=== PATIENT | male | born 1945 | race African-American/Black ===

== ENCOUNTER 2018-10-09 12:49 | Emergency (ER) | payer MEDICARE, OTHER ==
[~2018-10-09] VITALS: Ht 182.9 cm; Wt 106.4 kg
[~2018-10-09 12:49] MED LIST: ASPI-482 PO; CHOL2000 PO; OLME1TAB35 PO
--- NOTE | 2018-10-09 15:26 | PHYS DOC ---
Past Medical History Past Medical History: Cancer, Hypertension, Other Additional Past Medical Histor: prostate ca Past Surgical History: Other Additional Past Surgical Histo: prostate removed Alcohol Use: None Drug Use: None Adult General Chief Complaint Chief Complaint: OTHER COMPLAINTS HPI HPI Patient is a 73 year old [male] who presents with [transient right arm weakness. Patient reports he had been home 3 days ago, had a moment when he could not raise his right arm. States he was just very weak in that arm as well. Reports a short while afterwards the able to move his arm went away and he is able to move it as normal again. States he had contacted his primary care, had been seen there. Primary care recommend he have a CT scan. Patient reports the next day he had gone to [facility] had waited there in triage and had left after several hours without having any imaging performed. Reports he came here today to have his imaging and is reported by his doctor. Patient reports he feels just fine her now, denies any complaints at this time] Review of Systems Review of Systems Constitutional: Denies fever or chills [] Eyes: Denies change in visual acuity, redness, or eye pain [] HENT: Denies nasal congestion or sore throat [] Respiratory: Denies cough or shortness of breath [] Cardiovascular: No additional information not addressed in HPI [] GI: Denies abdominal pain, nausea, vomiting, bloody stools or diarrhea [] : Denies dysuria or hematuria [] Musculoskeletal: Denies back pain or joint pain, denies weakness [] Integument: Denies rash or skin lesions [] Neurologic: Denies headache, focal weakness or sensory changes [] Endocrine: Denies polyuria or polydipsia [] All other systems were reviewed and found to be within normal limits, except as documented in this note. Allergies Allergies Allergies Coded Allergies Type Severity Reaction Last Updated Verified iodine Allergy Intermediate Hives 10/09/18 Yes Physical Exam Physical Exam Constitutional: Well developed, well nourished, no acute distress, non-toxic appearance. [] HENT: Normocephalic, atraumatic, bilateral external ears normal, oropharynx moist, no oral exudates, nose normal. [] Eyes: PERRLA, EOMI, conjunctiva normal, no discharge. [] Neck: Normal range of motion, no tenderness, supple, no stridor. [] Cardiovascular:Heart rate regular rhythm, no murmur [] Lungs & Thorax: Bilateral breath sounds clear to auscultation [] Abdomen: Bowel sounds normal, soft, no tenderness, no masses, no pulsatile masses. [] Skin: Warm, dry, no erythema, no rash. [] Back: No tenderness, no CVA tenderness. [] Extremities: No tenderness, no cyanosis, no clubbing, ROM intact, no edema. [] Neurologic: Alert and oriented X 3, normal motor function, normal sensory function, no focal deficits noted. No ataxia. no weakness. sensation intact in all extremities. no facial droop. no slurred speech, no visual changes. [] Psychologic: Affect normal, judgement normal, mood normal. [] Current Patient Data Vital Signs Vital Signs Date Time Temp Pulse Resp B/P (MAP) Pulse Ox O2 Delivery O2 Flow Rate FiO2 10/09/18 15:29 80 144/88 (106) 93 Room Air 10/09/18 13:25 98.2 18 98.[address] changes. no STEMI. Singular PVC noted. [] Radiology/Procedures Radiology/Procedures Findings: Axial images of the head were obtained without contrast. Ventricles are normal size. Chronic ischemic changes white matter is notable. No intracranial hemorrhage, midline shift, or mass effect. Globes and optic nerves are unremarkable. Visualized paranasal sinuses are unremarkable. Impression: No acute process. PQRS Compliance Statement: One or more of the following individualized dose reduction techniques were utilized for this examination: 1. Automated exposure control 2. Adjustment of the mA and/or kV according to patient size 3. Use of iterative reconstruction technique Electronically signed by: Jens Cloud MD (10/09/2018 3:46 PM) [facility] [] Course & Med Decision Making Course & Med Decision Making Pertinent Labs and Imaging studies reviewed. (See chart for details) [Reviewed findings with patient, without acute changes noted on imaging. Discussed follow-up with primary care. Patient returned reports he will follow up with primary care provider no further questions] Dragon Disclaimer Dragon Disclaimer This electronic medical record was generated, in whole or in part, using a voice recognition dictation system. Departure Departure Impression: Primary Impression: Transient paralysis of a limb Disposition: 01 HOME, SELF-CARE Condition: GOOD Referrals: MELISSA SAXENA MD (PCP) Patient Instructions: Paresthesia, [id number]-[id number], Weakness, [id number] Additional Instructions: As we discussed, it is difficult to determine the cause of your inability to move the arm the other day. Today everything looks good. Your CT scan did not show any signs of anything acute. Please follow-up with your primary care prov ider in the next couple days to determine if they want to do any additional testing. If you have any further episodes where he lose the ability to move, please return to emergency room immediately EPI RAMIREZ APRN Oct 09, 2018 15:26
--- NOTE | 2018-10-09 15:49 | RAD ---
Examination: CT HEAD WO CONTRAST History: Transient weakness and paresthesias Comparison/Correlation: None Findings: Axial images of the head were obtained without contrast. Ventricles are normal size. Chronic ischemic changes white matter is notable. No intracranial hemorrhage, midline shift, or mass effect. Globes and optic nerves are unremarkable. Visualized paranasal sinuses are unremarkable. Impression: No acute process. PQRS Compliance Statement: One or more of the following individualized dose reduction techniques were utilized for this examination: 1. Automated exposure control 2. Adjustment of the mA and/or kV according to patient size 3. Use of iterative reconstruction technique Electronically signed by: Jens Cloud MD (10/09/2018 3:46 PM) [facility]
[2018-10-09 16:00] VITALS: BP 111/79
--- NOTE | 2018-10-11 04:39 | EKG ---
[facility] [address] [place] [address] Test Date: 2018-10-09 Test Time: 13:33:03 Pat Name: TEZ ANDINO Department: Room: Gender: M [employer] Manager: : 1945 Requested By: STAFF NON Order Number: [id number] Reading MD: Measurements Intervals [place] Rate: 86 P: 39 IN: 158 QRS: -8 QRSD: 84 T: 31 QT: 392 QTc: 472 Interpretive Statements SINUS RHYTHM VENTRICULAR PREMATURE COMPLEX(ES) LEFTWARD AXIS PROLONGED QT ABNORMAL ECG No previous ECG available for comparison
== END 2018-10-09 16:29 | disposition home or self-care (01) ==
LOC: ER 12:49
DX: G83.21 Monoplegia of upper limb affecting right dominant side (principal); I10 Essential (primary) hypertension; R51 Headache; Z88.8 Allergy status to other drugs, medicaments and biological substances
CPT/HCPCS: 70450; 93005; 99284-25

== ENCOUNTER → 2020-09-03 | Outpatient (CLI) | payer MEDICARE, OTHER ==
[~2020-09-03] MED LIST changes: +GADOTERATE 5 MMOL/10ML VIAL. ONE
[2020-09-03 08:58] LABS: CREATININE 1.3 mg/dL (0.7-1.3); GFR 65.5
--- NOTE | 2020-09-03 13:34 | RAD ---
EXAM: Left lower extremity arterial Doppler. HISTORY: Nonhealing ulcer left heel. COMPARISON: None. FINDINGS: Grayscale and Doppler analysis of the left lower extremity arterial system was performed. There are triphasic waveforms within the left common femoral, deep femoral and proximal superficial f emoral arteries. They become monophasic within the mid/distal superficial femoral artery. The most di stal aspect of the superficial femoral and popliteal arteries are occluded. There is weak postobstruc tive monophasic flow within the anterior tibial and posterior tibial arteries. The peroneal artery is nonvisualized. The dorsalis pedis artery is patent with weak monophasic flow. IMPRESSION: 1. 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 2. Weak post obstructive reconstitution of the trifurcation vessels as above. Electronically signed by: María John MD (09/03/2020 1:32 PM) [facility]
--- NOTE | 2020-09-03 14:09 | RAD ---
EXAM: MRI LEFT LOWER EXTREMITY W/WO 09/03/2020 8:24 AM CLINICAL INDICATION: Nonhealing wound left heel COMPARISON: None TECHNIQUE: Multiplanar multisequence MR images of the left foot before and after administration of 1 8 mL clear scan contrast. FINDINGS: There is no evidence of acute osteomyelitis. No acute fracture or marrow edema. There is a small cyst or lipoma in the calcaneus. Talar dome is intact. Tiny cystic changes in the lateral mall eolus. Cartilage is grossly maintained. No significant joint effusion. The medial flexor, peroneal, anterior extensor, and Achilles tendons are intact. No tenosynovitis. Me dial and lateral ligament is complexes are grossly intact. Intrathoracic is intact. Muscles are kris l. There is extensive subcutaneous edema along the anterior lateral aspect of the ankle and dorsal later al foot. Mild edema in Kager's fat pad and mild edema in the heel fat pad. No discrete ulcer or sinus tract visualized. IMPRESSION: 1. No evidence of osteomyelitis. 2. No discrete fluid collection. There is subcutaneous edema along the anterior lateral ankle and ariana solateral foot. Electronically signed by: Yanira Quiroz MD (09/03/2020 2:07 PM) [id number]
== END ==
LOC: US 10:02
PROVIDERS: ATTEND Emergency Medicine Undersea and Hyperbaric Medicine
DX: I70.202 Unspecified atherosclerosis of native arteries of extremities, left leg (principal); L97.429 Non-pressure chronic ulcer of left heel and midfoot with unspecified severity; E65 Localized adiposity; R60.9 Edema, unspecified; I70.8 Atherosclerosis of other arteries
CPT/HCPCS: 36415; 73720; 82565; 93922; 93926; A9575